=== PATIENT | male | born 1955 | race Caucasian/White ===

== ENCOUNTER 2016-08-23 08:20 | Day surgery (SDC) | payer OTHER ==
[2016-08-23] MEDS ORDERED: TETRACAINE 0.5% OPHTH 1 DOSE AFFEYE ONE ×3 (08:45→11:25)
[2016-08-23] MEDS ORDERED: VIGAMOX 0.5% OPHTH 1 DOSE AFFEYE ONE ×5 (08:50→11:37)
[2016-08-23] MEDS ORDERED: PROLENSA OPHTH 1 DOSE AFFEYE ONE (09:01)
[2016-08-23] MEDS ORDERED: ALPHAGAN-P OPHTH 1 DOSE AFFEYE ONE (09:02)
[2016-08-23] MEDS ORDERED: MYDRIACIL OPHTH 1 DOSE AFFEYE ONE ×3 (09:03→09:05)
[2016-08-23] MEDS ORDERED: CYCLOGYL 1% OPHTH 1 DOSE OP ONE ×3 (09:03→09:05)
[2016-08-23] MEDS ORDERED: AK-DILATE 2.5% OPHTH 1 DOSE OP ONE ×3 (09:03→09:05)
[2016-08-23] MEDS ORDERED: NS 500 ML IV 500 ML IV ONE (09:04)
[2016-08-23] MEDS ORDERED: BETADINE OPHTH SOLN 5% EACHEYE ONE (11:19)
[2016-08-23] MEDS ORDERED: ADRENALINE CHL INJ IJ ONE (11:25)
[2016-08-23] MEDS ORDERED: BSS OPHTH (PLAIN) 500 ML with VANCOMYCIN HCL 500 MG VIAL 25 MG, ADRENALINE CHL INJ 1 MG IR ONE ×3 (11:25)
[2016-08-23] MEDS ORDERED: DUOVISC IO ONE (11:25)
[2016-08-23] MEDS ORDERED: XYLOCAINE-MPF 1% IJ ONE (11:25)
[2016-08-23 15:09] VITALS: BP 152/94
== END 2016-08-23 12:05 | disposition home or self-care (01) ==
LOC: SURG1 08:20
PROVIDERS: ATTEND Ophthalmology
PROC: 08RK3JZ Replacement of Left Lens with Synthetic Substitute, Percutaneous Approach (ICD-10-PCS; principal; 2016-08-23 13:30)
PROC: 08DK3ZZ Extraction of Left Lens, Percutaneous Approach (ICD-10-PCS; principal; 2016-08-23 13:30)
DX: H25.12 Age-related nuclear cataract, left eye (principal); H25.042 Posterior subcapsular polar age-related cataract, left eye
CPT/HCPCS: A4222; A4217; J0170; J3370